=== PATIENT | female | born 1965 | race Caucasian/White ===

== ENCOUNTER → 2019-10-28 10:28 | Outpatient (CLI) | payer OTHER, SELFPAY ==
--- NOTE | ~2019-10-28 | MM_ITS ---
EXAMINATION: MM screening [facility] BI w [facility] HISTORY: Screening mammogram TECHNIQUE: Craniocaudal and mediolateral oblique 3-D tomosynthesis images were obtained and synthetic 2-D images were generated. CAD analysis was submitted and interpreted. COMPARISON: 08/15/2018, 08/05/2017, 07/20/2016 BREAST PARENCHYMAL COMPOSITION: There are scattered areas of fibroglandular density. FINDINGS: There is no evidence of suspicious mass, calcification, or architectural distortion to sugg est malignancy in either breast. There has been no suspicious interval change. IMPRESSION: 1. No mammographic evidence of malignancy. 2. Recommend routine screening mammography in one year. BI-RADS Category 1: Negative Reviewed, dictated and finalized at location A.
== END ==
PROVIDERS: Visit Provider Nurse Practitioner
DX: Z12.31 Encounter for screening mammogram for malignant neoplasm of breast (principal)
CPT/HCPCS: 77063; 77067

== ENCOUNTER 2020-07-05 09:48 | Outpatient (CLI) | payer OTHER, SELFPAY | END 2020-07-05 09:49 | disposition home or self-care (01) | LOC: ANHCOVIDVC 09:48 | DX: Z23 Encounter for immunization (principal) | CPT/HCPCS: 0001A; 91300 ==

== ENCOUNTER 2020-07-26 09:50 | Outpatient (CLI) | payer OTHER, SELFPAY | END 2020-07-26 09:51 | disposition home or self-care (01) | LOC: ANHCOVIDVC 09:50 | DX: Z23 Encounter for immunization (principal) | CPT/HCPCS: 0002A; 91300 ==

== ENCOUNTER → 2020-12-14 10:45 | Outpatient (CLI) | payer OTHER, SELFPAY ==
--- NOTE | ~2020-12-14 | MM_ITS ---
EXAMINATION: MM screening [facility] BI w [facility] HISTORY: Screening mammogram TECHNIQUE: Craniocaudal and mediolateral oblique 3-D tomosynthesis images were obtained and synthetic 2-D images were generated. CAD analysis was submitted and interpreted. COMPARISON: 10/28/2019, 08/15/2018, 08/05/2017 BREAST PARENCHYMAL COMPOSITION: There are scattered areas of fibroglandular density. FINDINGS: There is no evidence of suspicious mass, calcification, or architectural distortion to sugg est malignancy in either breast. There has been no suspicious interval change. IMPRESSION: 1. No mammographic evidence of malignancy. 2. Recommend routine screening mammography in one year. BI-RADS Category 1: Negative Reviewed, dictated and finalized at location A.
== END ==
PROVIDERS: Visit Provider Nurse Practitioner
DX: Z12.31 Encounter for screening mammogram for malignant neoplasm of breast (principal)
CPT/HCPCS: 77063; 77067

== ENCOUNTER 2021-07-12 11:07 | Outpatient (CLI) | payer OTHER, SELFPAY ==
--- NOTE | ~2021-07-12 | XR_ITS ---
EXAMINATION: XR knee RT 3V EXAM DATE: 07/12/2021 11:40 INDICATION: Right Knee Pain Times 3 Years No Injury Pain Posterior. TECHNIQUE: Three projections of the right knee. Comparison is made to prior examination from 4. FINDINGS: No evidence osteochondral defect or joint body in the right knee joint. There is mild pat ellofemoral and medial tibial femoral compartment primary osteoarthritis. There are no acute fracture s or dislocations identified. There is no subcutaneous gas. Small to moderate-sized joint effusion. There are no radiopaque foreign bodies. IMPRESSION: 1. Small to moderate right knee joint effusion. 2. Mild osteoarthritis. Reviewed, dictated and finalized at location G.
== END 2021-07-12 11:08 | disposition home or self-care (01) ==
PROVIDERS: PCP Internal Medicine; Visit Provider Internal Medicine
DX: M25.561 Pain in right knee (principal); M25.461 Effusion, right knee
CPT/HCPCS: 73562

== ENCOUNTER 2021-07-13 14:33 | Emergency (ER) | payer OTHER, SELFPAY ==
--- NOTE | ~2021-07-13 | CT_ITS ---
EXAMINATION: CT facial bones wo [facility] EXAM DATE: 07/13/2021 16:00 INDICATION: Right-sided face and nasal bone injury today. TECHNIQUE: Spiral CT of the facial bones was acquired in the axial plane without contrast. Coronal reformatted images were also reviewed. The dose-length product (DLP) for this examination was 299.77 mGy-cm. The exposure was tailored according to patient size, and iterative reconstruction (ASIR) wa s used as additional dose reduction technique. There is no prior study for comparison. FINDINGS: There are no displaced acute nasal bone fractures. The mandible, sinuses and orbits are in tact. The orbits, globes and extraocular muscles are unremarkable. The visualized sinuses and mas toid air cells are well aerated. Mild to moderate rightward nasal septal deviation. Occluded right ostiomeatal units. Minimal ethmoid mucoperiosteal thickening bilaterally. The soft tissue is unremark able. IMPRESSION: No acute facial fracture. Reviewed, dictated and finalized at location . IMPRESSION: No acute facial fracture.
[2021-07-13 14:57] VITALS: BP 156/97; PULSE 74; RESP 16; TEMP 36.4; O2SAT 98
--- NOTE | 2021-07-13 15:13 | ED.FALL ---
HPI - Fall General Chief Complaint: Fall Stated Complaint: face pain/jaw pain Time Seen by Provider: 07/13/21 15:13 Source: patient Mode of arrival: ambulatory Limitations: no limitations History of Present Illness HPI Narrative: This is a 55-year-old female with no significant past medical history, has some right knee pain had an x-ray performed which was negative was done on outpatient and has seen her primary care physician and ordered an MRI of the knee. But apparently today she she tripped possibly related to her knee pain with no recent injury of the right knee no swelling. Patient after she fell hit her face on the carpet causing some bruising and swelling around the right eye and at the bridge of the nose with some some mild neck pain, but has good range of motion of her neck did not have pass out neurologically stable no fever chills no palpitations no chest pain no shortness of breath. complaint: fall Onset (ago): hour(s) Fall from: standing Fall witnessed: no Place fall occurred: home Loss of consciousness: none Prolonged down time: no Symptoms prior to fall: none Context: tripped/slipped Location of injury: face Related Data Home Medications Medication Instructions Recorded Confirmed pravastatin 10 mg PO DAILY 07/13/21 07/13/21 venlafaxine 75 mg PO DAILY 07/13/21 07/13/21 Allergies Allergy/AdvReac Type Severity Reaction Status Date / Time No Known Allergies Allergy Mild Unverified 07/13/21 15:02 Review of Systems Review of Systems: All systems reviewed & are unremarkable except as noted in HPI and below PMFSH Past Medical History Medical History Patient denies medical problems Exam Const: General: no acute distress Orientation/consciousness: patient oriented x3 HENMT: Head: normal to inspection and contusion Other: mild bruising around the right eye with some swelling of the bridge of the nose Eyes: Conjunctivae: conjunctivae normal Pupils: Equal, round and reactive pupils present EOM: EOMs intact bilaterally Neck: Neck: normal visual inspection, no lymphadenopathy and no meningeal signs Chest: Chest palpation & inspection: normal inspection of the chest Resp: Effort & Inspection: normal respiratory effort Auscultation: clear to auscultation bilaterally Cardio: Rate: regular rate Rhythm: regular rhythm GI: GI Palp: Yes Soft to palpation : General: Yes no CVA tenderness Back/Spine/Pelvis: Back: no CVA tenderness Skin: General skin exam: normal color Neuro: General: patient oriented x3 Extrem: General: normal to inspection Psych: Mental Status: mental status grossly normal Affect: normal affect Course Course Emergency Course: patient had a scan facial bones and that was reviewed with patient, was asked if she she needed pain medicine she declined saying that she took some Advil prior to arrival. Vital Signs Vital signs: Vital Signs Temperature 36.4 C 07/13/21 14:57 Pulse Rate 74 07/13/21 14:57 Respiratory Rate 16 07/13/21 14:57 Blood Pressure 156/97 H 07/13/21 14:57 Pulse Oximetry 98 07/13/21 14:57 Temperature 36.4 C 07/13/21 14:57 Pulse Rate 74 07/13/21 14:57 Respiratory Rate 16 07/13/21 14:57 Blood Pressure 156/97 H 07/13/21 14:57 Pulse Oximetry 98 07/13/21 14:57 Critical Care Time Critical Care Time Critical Care Time: No Discharge Plan Discharge Clinical Impression: Contusion Qualifiers: Encounter type: initial encounter Contusion area: head Contusion of head detail: eyelid Laterality: right Qualified Code(s): S00.11XA - Contusion of right eyelid and periocular area, initial encounter Patient Disposition: Home, Self-Care Condition: Stable Instructions: Antibiotic Form, Concussion (ED) Additional Instructions: advised to follow-up primary care physician within 1 week further evaluation and treatment. Prescriptions: No Action pravastatin 10
[2021-07-13 16:37] VITALS: BP 144/83; PULSE 68; RESP 18; TEMP 36.4; O2SAT 98
== END 2021-07-13 16:42 | disposition home or self-care (01) ==
PROVIDERS: Emergency Provider Emergency Medicine; PCP Internal Medicine
DX: S00.11XA Contusion of right eyelid and periocular area, initial encounter (principal); W01.0XXA Fall on same level from slipping, tripping and stumbling without subsequent striking against object, initial encounter
CPT/HCPCS: 70486; 99284

== ENCOUNTER → 2021-07-25 13:16 | Outpatient (CLI) | payer OTHER, SELFPAY ==
--- NOTE | ~2021-07-25 | MR_ITS ---
EXAMINATION: MR knee RT wo con DATE: 07/25/2021 13:55 INDICATION: Right knee pain TECHNIQUE: Magnetic resonance imaging (MRI) of the right knee was performed without intravenous contr ast. Sequences included coronal PD-weighted FSE, coronal PD-weighted FS FSE, sagittal T2-weighted FS E, sagittal PD-weighted FS FSE and axial PD weighted fat saturated FSE. COMPARISON: None. FINDINGS: Medial compartment: Complex tear at the posterior horn of the medial meniscus which includes both a longitudinal horizont al tear plane extending to the cephalad articular surface as well as both a longitudinal vertical as well as vertical radial oriented tear planes at the lateral side of the posterior horn. Deep chondral ulceration with minimal underlying cortical irregularity and mild edema-like subarticular marrow sig nal change at the anterior weightbearing medial femoral condyle. Less severe severe partial thickness cartilage loss with smooth chondral surface along the central weightbearing medial femoral condyle a nd medial tibial plateau. Lateral compartment: Lateral meniscus is normal. Partial-thickness chondral ulceration with underlying small central spina l subchondral osteophyte at the posterior weightbearing lateral femoral condyle. Remaining cartilage is normal. Patellofemoral compartment: Partial-thickness chondral ulceration with deep fissuring at the patellar apical ridge and lateral si de of the medial facet. Additional partial thickness chondral fissure at the central aspect of the la teral patellar facet. Deep chondral ulceration along the caudal half of the medial trochlea, the troc hlear groove and medial half of the lateral trochlea with small central subchondral osteophytes at th e inferolateral aspect of the medial trochlea and trochlear groove and mild cystlike change at the la teral trochlea. Ligaments and tendons: Anterior and posterior cruciate ligaments are normal. The medial collateral ligament and fibular inder ateral ligament complex are normal. Mild distal quadriceps tendinopathy. Patellar tendon is normal. T he visualized medial and lateral hamstring tendons as well as the iliotibial band are normal. Fluid: Moderate-sized right knee joint effusion. No loose osteochondral bodies identified. Osseous/other: No fracture or pathologic marrow replacing process. IMPRESSION: 1. Complex tear at the posterior horn of the medial meniscus. 2. 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 2. Moderate-sized right knee joint effusion. Reviewed, dictated and finalized at location B. IMPRESSION: 1. Complex tear at the posterior horn of the medial meniscus. 2. Mild osteoarthritis with high-grade chondromalacia in the medial and patello femoral compartments. 2. Moderate-sized right knee joint effusion.
== END ==
PROVIDERS: PCP Internal Medicine; Visit Provider Internal Medicine
DX: M17.11 Unilateral primary osteoarthritis, right knee (principal); M25.461 Effusion, right knee; S83.231A Complex tear of medial meniscus, current injury, right knee, initial encounter; X58.XXXA Exposure to other specified factors, initial encounter
CPT/HCPCS: 73721

== ENCOUNTER 2022-04-17 15:57 | Outpatient (RCR) | payer OTHER, SELFPAY ==
--- NOTE | 2022-04-17 18:08 | PTOPEVAL1 ---
Assessment and note entered by Courtney Law DPT Evaluation Information Assessment Status Evaluation Diagnosis R knee pain Onset 03/28/2022 Subjective Information Pt reports that pain started about 2 years ago with insidious onset. MRI showed meniscus tear in the R knee. She reports swelling in her knee and reports pain all around the knee. She has been avoiding kneeling activities as her MD recommended not to. She reports that she can walk up to about an hour before needing to rest. She has not trialed an injection of the knee and is wanting to avoid surgery at all costs. She has a follow-up with her MD at the end of April. She notes some pain when turning on her leg wrong fand notes she limps. She reports pain occasionally alters her sleep. Pt currently takes Advil once a day now due to pain and occasionally uses cream. She wants to improve strength in her legs as needed for playing pickleball and other recreational activities such as playing on the ground with her grandkids. Reported Pain Level Pain Score 1: Self Report Assessment PT Clinical Summary Pt presents to PT with R knee pain and diagnosis of meniscus tear/OA and demonstrates decreased range of motion, decreased quad mobility, decreased strength, and antalgic gait. 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 She was provided with an HEP focused on improving mobility and tolerance to standing interventions. She will benefit from skilled PT to facilitate symptom relief, improve the aforementioned impairments, and return to functional and recreational activities. Plan of Care Interventions Electrical Stimulation,Gait Training,Hot Pack/Cold Pack,Intermittent Compression,Manual Therapy, Neuro Re-education,Therapeutic Activities, Therapeutic Exercise PT Services Indicated Yes Treatment Frequency and 2x week for 8 visits Duration These treatments will address the objective and functional deficits as defined above. The patient will be advanced safely and appropriately in order for the patient to progress towards his/her prior level of function. Additional exercises will be introduced and as well as a comprehensive home exercise program upon discharg
--- NOTE | 2022-05-10 20:56 | PTOPDC ---
Assessment and note entered by JT File, PT Evaluation Information Assessment Status Discharge Diagnosis R knee pain Onset 03/28/2022 Subjective Information patient reports she feels Good this date. she reports no pain at rest. she reports overall she is much better since beginning therapy. she reports she has no intensions of having surgery on the R knee. Reported Pain Level Pain Score 0: Self Report Assessment PT Clinical Summary mrs. gao presents to skilled PT for her final visit on her initial POC. she presnts with decreased pain, improved rom, improved strength, and normalized gait mechanics. as of this date, she has met more than 75% of goals for skilled PT. she would do well to DC skilled PT at this time and continue with HEP independent at home. Plan of Care Treatment Frequency and DC to independent HEP Duration
== END 2022-05-10 15:23 | disposition home or self-care (01) ==
LOC: CHSPT 15:57
PROVIDERS: PCP Internal Medicine; Visit Provider Internal Medicine
DX: M25.561 Pain in right knee (principal)
CPT/HCPCS: 97014; 97110; 97112; 97140; 97161; 97530; G0283

== ENCOUNTER → 2022-05-08 10:37 | Outpatient (CLI) | payer OTHER, SELFPAY ==
--- NOTE | ~2022-05-08 | MM_ITS ---
EXAMINATION: MM screening [facility] BI w [facility] HISTORY: Screening mammogram TECHNIQUE: Craniocaudal and mediolateral oblique 3-D tomosynthesis images were obtained and synthetic 2-D images were generated. CAD analysis was submitted and interpreted. COMPARISON: 12/14/2020, 10/28/2019, 08/15/2018 BREAST PARENCHYMAL COMPOSITION: There are scattered areas of fibroglandular density. FINDINGS: No suspicious mass, calcification, or architectural distortion are identified in either evans ast to suggest malignancy. There has been no suspicious interval change. IMPRESSION: 1. No mammographic evidence of malignancy. 2. Recommend routine screening mammography in one year. BI-RADS Category 1: Negative Reviewed, dictated and finalized at location A. [employer]
== END ==
PROVIDERS: PCP Nurse Practitioner; Visit Provider Nurse Practitioner
DX: Z12.31 Encounter for screening mammogram for malignant neoplasm of breast (principal)
CPT/HCPCS: 77063; 77067

== ENCOUNTER 2023-02-07 13:47 | Emergency (ER) | payer OTHER, SELFPAY ==
[2023-02-07 13:47] VITALS: BP 141/83; PULSE 72; RESP 16; TEMP 37.2; O2SAT 99
--- NOTE | 2023-02-07 14:11 | ED.EYEPROB ---
HPI - Eye Problem General Chief complaint: Eye Problems Stated complaint: blurry vision for 20 minutes 1hr prior Time Seen by Provider: 02/07/23 13:53 Source: patient and family Mode of arrival: ambulatory Limitations: no limitations History of Present Illness HPI Narrative: this is a 57-year-old female who presents with her with episode of blurry vision left eye started earlier today had a blood pressure systolic 170s with no other symptoms except mild headache that has subsequently resolved. The patient denied having any chest pain or shortness of breath no nausea vomiting no neck pain no chest pain no fever chills. No neurological deficits. chief complaint: vision change Onset (ago): hour(s) Onset description: sudden Duration: now resolved Location: left eye Place: home Mechanism: none Severity: mild Associated symptoms: headache Related Data Home Medications Medication Instructions Recorded Confirmed pravastatin 10 mg tablet 40 mg PO DAILY 07/13/21 02/07/23 venlafaxine 75 mg capsule,extended 75 mg PO DAILY 07/13/21 02/07/23 release 24 hr Allergies Allergy/AdvReac Type Severity Reaction Status Date / Time No Known Allergies Allergy Mild Unverified 02/07/23 13:58 Review of Systems Review of Systems: All systems reviewed & are unremarkable except as noted in HPI and below PMFSH Past Medical History Medical History Patient denies medical problems Exam Const: General: healthy appearing, no acute distress and alert Nutritional Appearance: well nourished Orientation/consciousness: patient oriented x3 Limitations: no limitations HENMT: Head: normal to inspection Eyes: Conjunctivae: conjunctivae normal Pupils: Equal, round and reactive pupils present EOM: EOMs intact bilaterally Direct Ophthalmoscopy: no photophobia Neck: Neck: normal visual inspection Chest: Chest palpation & inspection: normal inspection of the chest Resp: Effort & Inspection: normal respiratory effort Auscultation: clear to auscultation bilaterally Cardio: Rate: regular rate Rhythm: regular rhythm GI: GI Palp: Yes Soft to palpation : General: Yes bladder normal to palpation Skin: General skin exam: normal color Rashes: no rashes Neuro: General: patient oriented x3, moves all extremities, no meningeal signs and no focal motor deficits Cranial nerves: Yes Nystagmus not present Speech: normal speech Gait exam (Neuro): Normal gait present Extrem: General: normal to inspection and no clubbing, cyanosis or edema Psych: Mental Status: mental status grossly normal Affect: normal affect Course Course Emergency Course: Patient evaluated, blood pressure has improved to 140 1/83 her symptoms have completely resolved. Was told by the for primary care office to come to the emergency room to be evaluated. Patient symptoms again have come pre completely resolved there is no neurological deficits not complaining of any other symptoms gave patient and family reassurance and advised follow-up with primary care, and monitor blood pressure at home. Vital Signs Vital signs: Vital Signs Temperature 37.2 C 02/07/23 13:47 Pulse Rate 72 02/07/23 13:47 Respiratory Rate 16 02/07/23 13:47 Blood Pressure 141/83 H 02/07/23 13:47 Pulse Oximetry 99 02/07/23 13:47 Oxygen Delivery Room Air 02/07/23 13:47 Temperature 37.2 C 02/07/23 13:47 Pulse Rate 72 02/07/23 13:47 Respiratory Rate 16 02/07/23 13:47 Blood Pressure 141/83 H 02/07/23 13:47 Pulse Oximetry 99 02/07/23 13:47 Oxygen Delivery Room Air 02/07/23 13:47 Critical Care Time Critical Care Time Critical Care Time: No Discharge Plan Discharge Clinical Impression: Blurred vision, left eye, Elevated blood pressure reading Patient Disposition: Home, Self-Care Condition: Stable Instructions: Antibiotic Form, Blurred Vision (ED), Low-Sodium Diet (ED), Hypert
[2023-02-07 14:25] VITALS: BP 138/74; PULSE 72; RESP 16; TEMP 37.2; O2SAT 96
== END 2023-02-07 14:25 | disposition home or self-care (01) ==
PROVIDERS: Emergency Provider Emergency Medicine; PCP Internal Medicine
DX: H53.8 Other visual disturbances (principal); R03.0 Elevated blood-pressure reading, without diagnosis of hypertension; Z79.899 Other long term (current) drug therapy
CPT/HCPCS: 99281

== ENCOUNTER 2023-05-14 12:14 | Outpatient (CLI) | payer OTHER, SELFPAY ==
--- NOTE | ~2023-05-14 | DEXA_ITS ---
Bone Density Report Name: LORENZO LYNNE Age: 57 Sex: Female Ethnicity: White Date of : 1965 Indication: postmenopausal; screening for osteoporosis; Referring Provider: Jasmina, Isabella Study: Bone densitometry was performed. Exam Date: May 14, 2023 Accession number: [id number] Bone Density: Region BMD T-score Z-score Classification AP Spine(L1, L2, L3) 1.150 1.2 2.4 Normal Femoral Neck (Left) 0.757 -0.8 0.4 Normal Total Hip (Left) 1.053 0.9 1.7 Normal Femoral Neck (Right) 0.781 -0.6 0.6 Normal Total Hip (Right) 0.996 0.4 1.3 Normal Femoral Neck Mean 0.769 -0.7 0.5 Normal Total Hip Mean 1.025 0.7 1.5 Normal World Health Organization criteria for BMD impression classify patients as: Normal (T-score at or above -1.0), Osteopenia (T-score between -1.0 and -2.5), or Osteoporosis (T-score at or below -2.5). 10-year Fracture Risk: FRAX not reported because: All T-scores for Spine Total, Hip Total, Femoral Neck at or above -1.0 Clinical Information Provided by Patient: Has used the following medications: Vitamin D Patient maximum height was 61.5 Menopause Age: 58 No regular weight bearing exercise Drinks caffeinated beverages Onset of menses at age 13 Number of children 2 Impression: The patient has normal bone mass. Discussion: BONE DENSITY IS ABOVE THE MINIMUM DESIRABLE LEVEL AT ALL SKELETAL SITES TESTED. This patient?s bone mineral density is above the minimum desirable level (T-score -1.0 or better) at all sites measured. The patient should follow a healthful lifestyle (good nutrition with adequate calcium and vitamin D, and appropriate weight-bearing exercise). Follow-Up: Consider repeating this study in 5 years or sooner if there is some new clinical indication. Reported by: Dr. Masood Phan on 05/21/2023 8:24:00 AM. Reviewed, dictated and finalized at location A.
--- NOTE | ~2023-05-14 | MM_ITS ---
EXAMINATION: MM screening [facility] BI w [place] HISTORY: Screening mammogram TECHNIQUE: Craniocaudal and mediolateral oblique 3-D tomosynthesis images were obtained and synthetic 2-D images were generated. CAD analysis was submitted and interpreted. COMPARISON: 05/08/2022, 12/14/2020, 10/28/2019 BREAST PARENCHYMAL COMPOSITION: There are scattered areas of fibroglandular density. FINDINGS: No suspicious mass, calcification, or architectural distortion are identified in either evans ast to suggest malignancy. There has been no suspicious interval change. IMPRESSION: 1. No mammographic evidence of malignancy. 2. Recommend routine screening mammography in one year. BI-RADS Category 1: Negative Reviewed, dictated and finalized at location A. NURSE
== END 2023-05-14 12:15 | disposition home or self-care (01) ==
LOC: CHSIMG 12:16
PROVIDERS: PCP Internal Medicine; Visit Provider Nurse Practitioner
DX: Z12.31 Encounter for screening mammogram for malignant neoplasm of breast (principal); Z78.0 Asymptomatic menopausal state
CPT/HCPCS: 77063; 77067; 77080

== ENCOUNTER 2024-06-17 09:50 | Outpatient (CLI) | payer OTHER, SELFPAY ==
--- NOTE | ~2024-06-17 | MM_ITS ---
EXAMINATION: MM screening zonia BI w [facility]ira HISTORY: Screening mammogram TECHNIQUE: Craniocaudal and mediolateral oblique 3-D tomosynthesis images were obtained and synthetic 2-D images were generated. CAD analysis was submitted and interpreted. COMPARISON: 05/14/2023, 05/08/2022, 12/14/2020 BREAST PARENCHYMAL COMPOSITION:Not Dense. The breasts are almost entirely fatty FINDINGS: No suspicious mass, calcification, or architectural distortion are identified in either evans ast to suggest malignancy. There has been no suspicious interval change. IMPRESSION: No mammographic evidence of malignancy. Recommend routine screening mammography in one year. BI-RADS Category 1: Negative Reviewed, dictated and finalized at location . [employer]
--- OUTSIDE RECORDS SUMMARY | 2024-06-17 11:03 | XMS_ITS | Clinical Summary ---
Author Organization [facility] Address [address] [address] Phone Care Team Providers Care Web Development Director Name Role Phone Luisito Bae MD Primary Care Provider [phone] Allergies No known active allergies Medications atorvastatin (LIPITOR) 10 MG Tablet Take 10 mg by mouth daily. Active omeprazole (PRILOSEC) 20 MG CAPSULE DELAYED RELEASE Take 20 mg by mouth daily. Active Ipratropium-Albu terol (COMBIVENT RESPIMAT) 20-100 MCG/ACT Aerosol Solution take 1 Puff by inhalation every 4 hours as needed. 1 Inhaler 8 Active Additional Information Patient not taking.Reported on 07/25/2017 cefUROXime (CEFTIN) 500 MG Tablet Take 500 mg by mouth 2 times daily. Active Ascorbic Acid (VITAMIN C PO) Take 1 Tab by mouth daily. Active Multiple Vitamins-Mineral s (MULTIVITAMIN PO) Take 1 Tab by mouth daily. Active Lactobacillus (PROBIOTIC ACIDOPHILUS PO) Take 1 Tab by mouth daily. Active hydrocortisone (PROCTOZONE-HC) 2.5 % Cream Apply daily. Apply to rectum as directed. Active Probiotic Product (FLORAJEN3 PO) Take 1 Cap by mouth daily. Active Cholecalciferol (VITAMIN D PO) Take 5,000 Units by mouth daily. Active B Bwnvbbw-Axyrjb-O A (SUPER B-COMPLEX PO) Take 1 Cap by mouth daily. Active IBUPROFEN PO Take by mouth as needed. Active Loratadine 10 MG Capsule Take 1 Cap by mouth daily. Active FLUTICASONE PROPIONATE, NASAL, NA 2 Sprays by Nasal route as needed. 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 Not on file Not on file Not on file Last Filed Vital Signs Vital Sign Reading Time Taken Comments Blood Pressure 127/76 08/02/2017 12:10 PM CDT Pulse 70 08/02/2017 12:10 PM CDT Temperature 36 C (96.8 F) 08/02/2017 12:10 PM CDT Respiratory Rate 17 08/02/2017 12:10 PM CDT Oxygen Saturation 100% 08/02/2017 12:10 PM CDT Inhaled Oxygen Concentration - - Weight 83.9 kg (185 lb) 08/02/2017 10:34 AM CDT Height 156.2 cm (5' 1.5 ) 08/02/2017 10:34 AM CD T Body Mass Index 34.39 08/02/2017 10:34 AM CDT Plan of Treatment Health Maintenance Due Date Last Done Comments Hepatitis C Virus (HCV) Screening 1965 TdaP Immunization 1965 Hepatitis B Immunization (1 of 3 - 19+ 3-dose series) 1984 Pap Smear 1986 Cervical Cancer Screening (CCS) 08/25/1995 HPV/Cotest 08/25/1995 Cologuard 08/25/2015 Immunochemical Fecal Occult Blood 08/25/2015 Mammogram 08/25/2015 Pneumococcal Immunization (5 0+ years) (1 of 1 - PCV) 08/25/2015 Zoster Immunization (1 of 2) 08/25/2015 Colonoscopy 08/02/2022 08/02/2017 Colorectal Cancer Screening 08/02/2022 Influenza Immunization (#1) 2023 SARS-COV-2 Immunization ( - 2023-25 season) 2023 Respiratory Syncytial Virus (RSV) Immunization (Adult) (1 - 1-dose 75+ series) 2040 08/02/2017 Meningococcal Immunization (ACWY) Aged Out No longer eligible based on patient's age to complete this topic Pneumococcal Immunization Combined Aged Out No longer eligible based on patient's age to complete this topic Rotavirus Immunization Aged Out No lo nger eligible based on patient's age to complete this topic Care Teams Web Development Director Relationship Specialty Start Date End Date Luisito Bae MD [address] [place] [address] PCP - General Internal Medicine 08/01/17
== END 2024-06-17 09:51 | disposition home or self-care (01) ==
PROVIDERS: PCP Internal Medicine; Visit Provider Nurse Practitioner
DX: Z12.31 Encounter for screening mammogram for malignant neoplasm of breast (principal)
CPT/HCPCS: 77063; 77067

== ENCOUNTER 2024-12-16 14:38 | Outpatient (RCR) | payer OTHER, SELFPAY ==
--- NOTE | 2024-12-30 14:05 | OPREHPOC ---
Outpatient Therapy Plan of Care This is a Multidisciplinary Plan of Care that may contain components documented by all disciplines (PT, OT, and ST.) PT Problem 1 PT Problem #1 Knowledge Deficit PT Goal 1 Goal / Goal Update independent and compliant with HEP Target Visit 3 PT Problem 2 PT Problem #2 Pain PT Goal 1 Goal / Goal Update reduce pain frequency to no more than 2x weekly. Target Visit 3 PT Problem 3 PT Problem #3 Impaired Functional Mobility PT Goal 1 Goal / Goal Update patient to sleep through the night 5 nights a week without symptoms patient to display 10% or less bilateral shoulder quick dash scores Target Visit 3
--- NOTE | 2024-12-30 14:05 | PTOPEVAL1 ---
Assessment and note entered by JT File, PT Evaluation Information Assessment Status Evaluation ICD-10 Condition Codes (PT) Pain in right shoulder M25.511,Pain in left shoulder M25.512 Subjective Information patient reports she has been having pain both shoulders for a few months. she believes it might be a combination of weight lifting and arthritis. she reports her wild life photographer said her xrays looked off and sent her to PT. she reports she has increased pain with lifting things up in front of her, and reaching behind head head and back. she reports it was getting better, but comes and goes still. she reports her pain is lower, and she reports she is woken up less throughout the night. Assessment PT Clinical Summary mrs. gao is a pleasant 59 yo woman who presents to skilled PT services for evaluation and treatment of bilateral shoulder pain. she displays slight deficits in shoulder strength and L shoulder rom compared to the R side. she likely suffers from the early stages of rotator cuff arthropathy. continued skilled is indicated to improve patients lifting and functional performance to improve her quality of life and return to prior level functional activities. Plan of Care Interventions Electrical Stimulation,Hot Pack/Cold Pack,Neuro Re -education,Patient/Caregiver Education,Therapeutic Activities,Therapeutic Exercise PT Services Indicated Yes Treatment Frequency and 1x weekly for 3 visits Duration These treatments will address the objective and functional deficits as defined above. The patient will be advanced safely and appropriately in order for the patient to progress towards his/her prior level of function. Additional exercises will be introduced and as well as a comprehensive home exercise program upon discharge, if needed, ?to ensure carryover of functional gains achieved in the clinic. This treatment plan has been reviewed and agreement upon by the patient.
--- NOTE | 2024-12-30 15:18 | OPREHPOC ---
Outpatient Therapy Plan of Care This is a Multidisciplinary Plan of Care that may contain components documented by all disciplines (PT, OT, and ST.) PT Problem 1 PT Problem #1 Knowledge Deficit PT Goal 1 Goal / Goal Update independent and compliant with HEP Target Visit 3 Progress Met PT Problem 2 PT Problem #2 Pain PT Goal 1 Goal / Goal Update reduce pain frequency to no more than 2x weekly. Target Visit 3 Progress Not Met PT Problem 3 PT Problem #3 Impaired Functional Mobility PT Goal 1 Goal / Goal Update patient to sleep through the night 5 nights a week without symptoms -met patient to display 10% or less bilateral shoulder quick dash scores -not met (progress 11.4%) Target Visit 3 Progress Partially Met
--- NOTE | 2024-12-30 15:18 | PTOPDC ---
Assessment and note entered by Sadaf Dolan, PT Evaluation Information Assessment Status Discharge ICD-10 Condition Codes (PT) Pain in right shoulder M25.511,Pain in left shoulder M25.512 Subjective Information Bianca Gomez reports her bilateral shoulder pain has improved overall. She continues to have dull pain but it is getting better. She has been performing exercises on her own and trying to work on her posture. She still has pain with pushing up from sitting and heavy lifting. She notes pain does not stop her from doing anything she just has to be careful. Reported Pain Level Pain Score 2: Self Report Assessment PT Clinical Summary Bianca Gomez has completed 2 skilled PT visits for bilateral shoulder pain. She has been doing exercises on her own and trying to be conscious of her posture and she feels this has reduced her pain. She does still have pain with pushing up from sitting and heavy lifting. She objectively demonstrates improved shoulder AROM. She continues to have mild deficits in shoulder strength. She is independent in a home exercise program for strength and posture. She will be discharged. Plan of Care PT Services Indicated No
== END 2024-12-30 20:00 | disposition home or self-care (01) ==
LOC: CHSPT 14:38
DX: M25.511 Pain in right shoulder (principal); M25.512 Pain in left shoulder
CPT/HCPCS: 97014; 97110; 97161; 97750; G0283